=== PATIENT | male | born 1970 | race Caucasian/White ===

== ENCOUNTER 2018-05-09 22:34 | Emergency (ER) | payer OTHER ==
[~2018-05-09] VITALS: Ht 175.3 cm; Wt 113.6 kg
[2018-05-09] MEDS ORDERED: AmLODIPine BESYLATE 5 MG TABLET PO ONE (23:45)
[2018-05-09] MEDS ORDERED: DIVALPROEX SODIUM 500 MG ER TABLET PO ONE (23:45)
[2018-05-10 00:12] LABS: HEMATOCRIT 39.4 % (41-53); HEMOGLOBIN 13.7 g/dL (13.5-17.5); LYMPHOCYTES # (AUTO) 2.3 K/uL (1.0-4.8); LYMPHOCYTES % (AUTO) 27.6 % (22.0-44.0); MEAN CORPUSCULAR HEMOGLOBIN 31.4 pg (26.0-34.0); MEAN CORPUSCULAR HGB CONC 34.7 G/dL (31.0-37.0); MEAN CORPUSCULAR VOLUME 91 fL (80-100); MONOCYTES # (AUTO) 0.7 K/uL (0.1-1.0); MONOCYTES % (AUTO) 7.9 % (2.0-9.0); NEUTROPHILS % (AUTO) 60.5 % (40.0-70.0); PLATELET COUNT (AUTO) 232 K/uL (150-450); RED BLOOD CELL COUNT(AUTO) 4.35 MIL/uL (4.50-5.90); RED CELL DISTRIBUTION WIDTH 13.8 % (11.5-14.5)
[2018-05-10 00:34] LABS: ANION GAP 8 mmol/L (8-16); CALCIUM, TOTAL 9.1 mg/dL (8.8-10.5); CARBON DIOXIDE 29 mmol/L (22-29); CHLORIDE 104 mmol/L (98-107); CREATININE 0.69 mg/dL (0.60-1.30); GLOMERULAR FILTR. RATE CALC > 60 mL/min (>60); GLUCOSE,RANDOM 94 mg/dL (70-110); POTASSIUM 3.6 mmol/L (3.5-5.1); SODIUM SERUM 141 mmol/L (136-145); UREA NITROGEN, BLOOD 9 mg/dL (7-18)
[2018-05-10 00:39] LABS: ALANINE AMINOTRANSFERASE 30 U/L (12-78); ALBUMIN 3.2 g/dL (3.4-5.0); ALKALINE PHOSPHATASE 74 U/L (46-116); ASPARTATE AMINOTRANSFERASE 20 U/L (15-37); BILIRUBIN,TOTAL 0.3 mg/dL (0.1-1.0); TOTAL PROTEIN, SERUM 7.2 g/dL (6.4-8.2)
[2018-05-10 01:50] VITALS: BP 150/95
== END 2018-05-10 01:57 | disposition home or self-care (01) ==
LOC: EMS 22:37
DX: I10 Essential (primary) hypertension (principal); F31.9 Bipolar disorder, unspecified; F19.90 Other psychoactive substance use, unspecified, uncomplicated
CPT/HCPCS: 36415; 80053; 85025; 93005; 99284; G0480

== ENCOUNTER 2018-07-06 16:29 | Emergency (ER) | payer OTHER ==
[~2018-07-06] VITALS: Ht 175.3 cm; Wt 118.2 kg
[2018-07-06] MEDS ORDERED: ARIP2 PO (16:37)
[2018-07-06] MEDS ORDERED: LISI-660 PO (16:37)
[2018-07-06] MEDS ORDERED: DIVA125T32 PO (16:37)
[2018-07-06 16:54] VITALS: BP 179/98
== END 2018-07-06 17:03 | disposition home or self-care (01) ==
LOC: EMS 16:30
DX: I10 Essential (primary) hypertension (principal); F31.9 Bipolar disorder, unspecified; F15.90 Other stimulant use, unspecified, uncomplicated; Z79.899 Other long term (current) drug therapy

== ENCOUNTER 2018-07-12 15:32 | Emergency (ER) | payer OTHER ==
[~2018-07-12] VITALS: Ht 175.3 cm; Wt 109.1 kg
[~2018-07-12 15:32] MED LIST: ARIP2 PO; DIVA125T32 PO; LISI-660 PO
[2018-07-12] MEDS ORDERED: HYDR25TA PO (15:38)
[2018-07-12] MEDS ORDERED: ACETAMINOPHEN 500 MG TABLET PO ONE (16:15)
[2018-07-12] MEDS ORDERED: AmLODIPine BESYLATE 5 MG TABLET PO ONE (16:15)
[2018-07-12 16:33] LABS: BASOPHILS % (AUTO) 0.6 % (0.0-2.0); EOSINOPHILS % (AUTO) 2.4 % (1.0-6.0); HEMATOCRIT 40.7 % (41-53); HEMOGLOBIN 13.6 g/dL (13.5-17.5); LYMPHOCYTES % (AUTO) 24.1 % (22.0-44.0); MEAN CORPUSCULAR HGB CONC 33.4 G/dL (31.0-37.0); MEAN CORPUSCULAR VOLUME 93 fL (80-100); MONOCYTES # (AUTO) 0.7 K/uL (0.1-1.0); MONOCYTES % (AUTO) 7.9 % (2.0-9.0); NEUTROPHILS # (AUTO) 5.4 K/uL (1.8-7.7); PLATELET COUNT (AUTO) 235 K/uL (150-450); RED BLOOD CELL COUNT(AUTO) 4.39 MIL/uL (4.50-5.90); RED CELL DISTRIBUTION WIDTH 13.8 % (11.5-14.5)
[2018-07-12 16:42] LABS: ANION GAP 8 mmol/L (8-16); CALCIUM, TOTAL 9.7 mg/dL (8.8-10.5); CARBON DIOXIDE 30 mmol/L (22-29); CHLORIDE 104 mmol/L (98-107); GLOMERULAR FILTR. RATE CALC > 60 mL/min (>60); GLUCOSE,RANDOM 96 mg/dL (70-110); SODIUM SERUM 142 mmol/L (136-145); UREA NITROGEN, BLOOD 16 mg/dL (7-18)
[2018-07-12 17:00] LABS: B-TYPE NATRIURETIC PEPTIDE 52 pg/mL (0-100)
[2018-07-12 17:06] LABS: ALANINE AMINOTRANSFERASE 25 U/L (12-78); ALBUMIN 3.4 g/dL (3.4-5.0); ALKALINE PHOSPHATASE 64 U/L (46-116); ASPARTATE AMINOTRANSFERASE 20 U/L (15-37); BILIRUBIN,TOTAL 0.3 mg/dL (0.1-1.0); CREATINE KINASE, TOTAL ONLY 85 U/L (39-308); TOTAL PROTEIN, SERUM 7.5 g/dL (6.4-8.2); VALPROIC ACID 53 mcg/mL (50-100)
[2018-07-12] MEDS ORDERED: HYDROCHLOROTHIAZIDE 25 MG TABLET PO ONE (19:15)
[2018-07-12 19:55] VITALS: BP 164/97
== END 2018-07-12 19:59 | disposition home or self-care (01) ==
LOC: EMS 15:34
DX: I10 Essential (primary) hypertension (principal); F15.21 Other stimulant dependence, in remission; F31.9 Bipolar disorder, unspecified; Z79.899 Other long term (current) drug therapy
CPT/HCPCS: 93005

== ENCOUNTER 2018-08-31 12:13 | Emergency (ER) | payer OTHER ==
[~2018-08-31] VITALS: Ht 175.3 cm; Wt 117.3 kg
[~2018-08-31 12:13] MED LIST changes: +HYDR25TA PO
[2018-08-31 15:00] VITALS: BP 131/88
== END 2018-08-31 15:19 | disposition home or self-care (01) ==
LOC: EMS 12:13
DX: G89.29 Other chronic pain (principal); M54.5 Low back pain; F31.9 Bipolar disorder, unspecified; F41.9 Anxiety disorder, unspecified; F15.10 Other stimulant abuse, uncomplicated; F34.89 Other specified persistent mood disorders; I10 Essential (primary) hypertension; F17.200 Nicotine dependence, unspecified, uncomplicated; Z79.899 Other long term (current) drug therapy
CPT/HCPCS: 99406